=== PATIENT | female | born 1980 | race African-American/Black ===

== ENCOUNTER 2023-11-14 12:23 | Emergency (ER) | payer OTHER ==
[2023-11-14] MEDS ORDERED: Iopamidol 300 61% 100 ML VIAL FS ONE (13:34)
[2023-11-14] MEDS ORDERED: Morphine 4 MG/ML VIAL ONE (13:46)
[2023-11-14] MEDS ORDERED: Ondansetron PF 4 MG/2 ML Vial ONE (13:46)
[2023-11-14 13:50] LABS: Bilirubin Neg (Negative); Blood, Urine 25 (Negative); Clarity Cloudy (Clear); Glucose, Urine (Dipstick) >=1000 mg/dL (Negative); Ketone, Urine Negative (Negative); Leukocyte 100 (Negative); Nitrite Negative (Negative); Protein, Urine (Dipstick) 100 mg/dl (Neg-Trace); Specific Gravity, Urine 1.015 (1.005-1.030); Urobilinogen Normal mg/dL (Less than 2)
[2023-11-14 13:56] LABS: #Basophils 0.1 10x3/uL (0.0-0.2); #Eosinphils 0.1 10x3/uL (0.0-0.5); #Monocytes 0.6 10x3/uL (0.0-1.1); #Neutrophils 4.9 10x3/uL (1.5-8.4); %Eosinophils 0.9 % (0.0-6.0); %Lymphocytes 19.9 % (18.0-47.0); %Monocytes 8.1 % (0.0-10.0); Hematocrit 32.5 % (34.9-44.5); Hemoglobin 9.3 g/dL (12.0-15.5); Mean Corpuscular HGB CONC 28.6 g/dL (32.0-36.0); Mean Corpuscular Hemoglobin 20.1 pg (27.0-33.0); Mean Corpuscular Volume 70.3 fl (81.6-98.3); Mean Platelet Volume 10.9 fl (7.4-10.4); Platelet Count 324 10x3/uL (150-450); RBC Distribution Width 17.1 % (11.5-14.5); Red Blood Cell (RBC) Count 4.62 10x6/uL (3.90-5.03)
[2023-11-14 13:59] LABS: Amphetamine Not Detected (NotDetected); BHCG - Serum Negative (NEGATIVE); Barbiturates Screen Not Detected (NotDetected); Benzodiazepine Screen Not Detected (NotDetected); Cocaine Metabolite Screen Not Detected (NotDetected); Methadone Not Detected (NotDetected); Methamphetamine Not Detected (NotDetected); Opiate Screen Not Detected (NotDetected); Oxycodone Screen Not Detected (NotDetected); Phencyclidine (PCP) Not Detected (NotDetected); Pregs Control Bar Appear? YES (CONTROL BAR); THC/Cannabinoid Screen Not Detected (NotDetected); Tricyclic Screen Not Detected (NotDetected)
[2023-11-14 14:00] LABS: Pregs Control Background? CLEAR/WHITE (CLR/WHITE)
[2023-11-14 14:04] LABS: Acetaminophen Less than 10 mcg/mL (10.0-30.0); Alcohol Less than 10.0 mg/dL (Less than 10); Lipase 11 U/L (8-78); Magnesium 1.8 mg/dL (1.6-2.6); Salicylate Less than 8.0 mg/dL (15.0-30.0)
[2023-11-14 14:05] LABS: ALT (SGPT) 15 U/L (8-55); AST (SGOT) 18 U/L (5-34); Albumin 3.9 g/dL (3.5-5.0); Alkaline Phosphatase 115 U/L (40-110); Anion Gap 14 mmol/L (10-20); BUN (Urea Nitrogen) 16 mg/dL (7.0-18.7); Bilirubin, Total 0.5 mg/dL (0.2-1.2); Calc. Creatinine Clearance 0 mL/min (70-130); Carbon Dioxide 16 mmol/L (22-29); Chloride 104 mmol/L (98-107); Estimated GFR 56; Globulin 4.5 g/dL (2.4-3.5); Potassium 4.7 mmol/L (3.5-5.1); Protein, Total 8.4 g/dL (6.0-8.3); Sodium 129 mmol/L (136-145)
[2023-11-14 14:13] LABS: Glucose 418 mg/dL (70-105)
[2023-11-14 14:23] LABS: Bacteria/HPF 4+ HPF (None Seen)
[2023-11-14 14:24] LABS: CAUTI Indications for Culture Pelvic or flank pain; RBC/HPF 0-3 HPF (0-3); WBC/HPF 21-50 HPF (0-3)
[2023-11-14 14:25] LABS: Urine Culture Reflex Yes Yes
[2023-11-14 14:26] LABS: Anisocytosis SLIGHT = 6-15 cells (100X) (0-5/hpf); Microcytosis SLIGHT = 6-15 cells (100X) (0-5/hpf)
[2023-11-14 14:27] LABS: Hypochromia SLIGHT = 6-15 cells (100X) (0-5/hpf); Polychromasia SLIGHT = 2-3 cells (100X) (0-2/hpf); Tear Drops SLIGHT = 2-5 cells (100X) (0-1/hpf)
[2023-11-14 14:28] LABS: Ovalocytes MODERATE= 6-15 cells (100X) (0-1/hpf)
[2023-11-14 14:29] LABS: Platelet Adequacy Comment Appears Adequate
[2023-11-14] MEDS ORDERED: cefTRIAXone (ROCEPHIN) 1 GM VIAL ONE (15:04)
[2023-11-14 15:37] LABS: Actual Bicarbonate (HCO3v) 19.4 mEq/L (22-28); Analyzer IN Cardio CS ER; Base Excess -6.3 mEq/L (-2 - +2); Calcium, Ionized (venous) 1.13 mmol/L (1.16-1.32); Chloride (VBG) 102 mmol/L (98-106); Hematocrit-VBG 28 % (36.0-47.0); Hemoglobin (Hb) 9.6 g/dL (11.7-15.5); Potassium (VBG) 4.32 mmol/L (3.70-5.30); Puncture Site Other Site; RapidComm Collect By LAB; Sodium 121 mmol/L (133-146); pH (venous) 7.317 (7.32-7.43)
== END 2023-11-14 16:02 | disposition home or self-care (01) ==
LOC: CSHERS 12:23
DX: N39.0 Urinary tract infection, site not specified (principal); K86.1 Other chronic pancreatitis; I10 Essential (primary) hypertension; E11.9 Type 2 diabetes mellitus without complications; F17.210 Nicotine dependence, cigarettes, uncomplicated; Z79.84 Long term (current) use of oral hypoglycemic drugs
CPT/HCPCS: 74177; 80053; 80306; 80307; 81001; 82805; 83690; 83735; 84703; 85025; 87086; 93005; 96361; 96374; 96375; J0696; J2270; J2405; Q9967

== ENCOUNTER 2023-11-15 10:59 | Emergency (ER) | payer OTHER ==
[2023-11-15] MEDS ORDERED: Gabapentin 100 MG CAP PO SCH (11:30)
== END 2023-11-15 12:04 | disposition home or self-care (01) ==
LOC: CSHERS 10:59
DX: B02.9 Zoster without complications (principal); I10 Essential (primary) hypertension; E11.9 Type 2 diabetes mellitus without complications; E78.5 Hyperlipidemia, unspecified; B20 Human immunodeficiency virus [HIV] disease; F17.210 Nicotine dependence, cigarettes, uncomplicated; Z79.84 Long term (current) use of oral hypoglycemic drugs; Z79.899 Other long term (current) drug therapy
CPT/HCPCS: 74177; 80053; 80306; 80307; 81001; 82805; 83690; 83735; 84703; 85025; 87077; 87086; 93005; 96361; 96374; 96375; 99282; J0696; J2270; J2405; Q9967

== ENCOUNTER 2024-11-14 10:47 | Emergency (ER) | payer OTHER ==
[~2024-11-14 10:47] MED LIST: Iopamidol 300 61% 100 ML VIAL FS ONE
[2024-11-14] MEDS ORDERED: hydrALAZINE 20 MG/ML VIAL ONE (12:15)
[2024-11-14 12:43] LABS: Hematocrit 24.5 % (34.9-44.5); Hemoglobin 6.8 g/dL (12.0-15.5); Mean Corpuscular HGB CONC 27.8 g/dL (32.0-36.0); Mean Corpuscular Hemoglobin 18.9 pg (27.0-33.0); Mean Corpuscular Volume 68.1 fL (81.6-98.3); Mean Platelet Volume 9.8 fL (7.4-10.4); Platelet Count 334 10x3/uL (150-450); RBC Distribution Width 16.5 % (11.5-14.5); White Blood Cell (WBC) Count 6.36 10x3/uL (3.5-10.5)
[2024-11-14 12:44] LABS: #Basophils 0.03 10x3/uL (0.0-0.2); #Eosinophils 0.05 10x3/uL (0.0-0.5); #Monocytes 0.52 10x3/uL (0.0-1.1); %Basophils 0.5 % (0.0-2.0); %Eosinophils 0.8 % (0.0-6.0); %Lymphocytes 24.1 % (18.0-47.0); %Monocytes 8.2 % (0.0-10.0); %Neutrophils 65.9 % (40.0-75.0)
[2024-11-14 12:56] LABS: ALT (SGPT) Less than 7 U/L (Less than 34); AST (SGOT) 11 U/L (11-34); Albumin 3.2 g/dL (3.1-4.5); Alkaline Phosphatase 108 U/L (40-110); Anion Gap 14 mmol/L (10-20); BUN (Urea Nitrogen) 17 mg/dL (7.0-18.7); Bilirubin, Total 0.3 mg/dL (0.3-1.2); Calc. Creatinine Clearance 0 mL/min (70-130); Calcium 8.8 mg/dL (7.8-10.44); Carbon Dioxide 23 mmol/L (22-29); Chloride 99 mmol/L (98-107); Estimated GFR 50; Globulin 4.9 g/dL (2.4-3.5); Potassium 3.7 mmol/L (3.5-5.1); Protein, Total 8.1 g/dL (6.0-8.3); Sodium 132 mmol/L (136-145)
[2024-11-14 13:27] LABS: Hypochromia SLIGHT = 6-15 cells (100X) (0-5/hpf); Microcytosis MODERATE=15-30 cells (100X) (0-5/hpf); Ovalocytes MODERATE= 6-15 cells (100X) (0-1/hpf); Polychromasia SLIGHT = 2-3 cells (100X) (0-2/hpf); Tear Drops SLIGHT = 2-5 cells (100X) (0-1/hpf)
[2024-11-14 13:28] LABS: Platelet Adequacy Comment Appears Adequate
[2024-11-14 13:57] LABS: Prothrombin Time 10.5 sec (9.5-12.1)
[2024-11-14 14:23] LABS: Critical Call Chemistry ERS.BW2 AT 1423; Glucose 422 mg/dL (70-105)
[2024-11-14 18:20] LABS: #Basophils 0.04 10x3/uL (0.0-0.2); %Basophils 0.5 % (0.0-2.0); %Eosinophils 1.3 % (0.0-6.0); %Lymphocytes 25.3 % (18.0-47.0); %Monocytes 9.2 % (0.0-10.0); %Neutrophils 63.2 % (40.0-75.0); Hematocrit 26.1 % (34.9-44.5); Hemoglobin 7.5 g/dL (12.0-15.5); Mean Corpuscular HGB CONC 28.7 g/dL (32.0-36.0); Mean Corpuscular Hemoglobin 20.1 pg (27.0-33.0); Mean Platelet Volume 9.2 fL (7.4-10.4); Platelet Count 307 10x3/uL (150-450); RBC Distribution Width 17.4 % (11.5-14.5); Red Blood Cell (RBC) Count 3.73 10x6/uL (3.90-5.03)
== END 2024-11-14 18:19 | disposition short-term general hospital (02) ==
LOC: CSHERS 10:47
DX: I82.412 Acute embolism and thrombosis of left femoral vein (principal); D64.9 Anemia, unspecified; E11.65 Type 2 diabetes mellitus with hyperglycemia; I10 Essential (primary) hypertension; B20 Human immunodeficiency virus [HIV] disease; E78.5 Hyperlipidemia, unspecified; F17.210 Nicotine dependence, cigarettes, uncomplicated
CPT/HCPCS: 36415; 36430; 36556; 71045; 74177; 80053; 82010; 85025; 85610; 85730; 86850; 86900; 86901; 96374; J0360; P9016; Q9967

== ENCOUNTER 2025-06-13 00:49 | Emergency (ER) | payer OTHER ==
[2025-06-13] MEDS ORDERED: Mag-Al 1200 mg/1200 mg/30 ML UDCUP ONE (01:14)
[2025-06-13] MEDS ORDERED: Lidocaine Viscous Sol 2% 15 ml UD Cup ONE (01:14)
[2025-06-13] MEDS ORDERED: HYDROmorphone 0.5 MG/0.5 ML SYRINGE ONE (01:33)
[2025-06-13] MEDS ORDERED: Ondansetron PF 4 MG/2 ML Vial ONE (01:33)
[2025-06-13 01:52] LABS: Hematocrit 28.1 % (34.9-44.5); Hemoglobin 8.3 g/dL (12.0-15.5); Mean Corpuscular Hemoglobin 21.9 pg (27.0-33.0); Mean Corpuscular Volume 74.1 fL (81.6-98.3); Platelet Count 346 10x3/uL (150-450); Red Blood Cell (RBC) Count 3.79 10x6/uL (3.90-5.03); White Blood Cell (WBC) Count 5.63 10x3/uL (3.5-10.5)
[2025-06-13 01:55] LABS: ALT (SGPT) 14 U/L (Less than 34); AST (SGOT) 21 U/L (11-34); Albumin 3.9 g/dL (3.1-4.5); Alkaline Phosphatase 117 U/L (40-110); Anion Gap 17 mmol/L (10-20); BUN (Urea Nitrogen) 30 mg/dL (7.0-18.7); Bilirubin, Total 0.3 mg/dL (0.3-1.2); Calc. Creatinine Clearance 0 mL/min (70-130); Calcium 9.2 mg/dL (7.8-10.44); Carbon Dioxide 20 mmol/L (22-29); Chloride 98 mmol/L (98-107); Globulin 4.7 g/dL (2.4-3.5); Lipase 16 U/L (8-78); Potassium 4.5 mmol/L (3.5-5.1); Sodium 130 mmol/L (136-145)
[2025-06-13 02:01] LABS: Troponin I Less than 0.010 ng/mL (< 0.028)
[2025-06-13 02:16] LABS: Glucose 571 mg/dL (70-105)
[2025-06-13 02:30] LABS: #Basophils 0.05 10x3/uL (0.0-0.2); #Eosinophils 0.05 10x3/uL (0.0-0.5); #Monocytes 0.65 10x3/uL (0.0-1.1); #Neutrophils 3.23 10x3/uL (1.5-8.4); %Basophils 0.9 % (0.0-2.0); %Eosinophils 0.9 % (0.0-6.0); %Lymphocytes 29.1 % (18.0-47.0); %Monocytes 11.5 % (0.0-10.0); %Neutrophils 57.4 % (40.0-75.0); Anisocytosis SLIGHT = 6-15 cells (100X) (0-5/hpf); Microcytosis SLIGHT = 6-15 cells (100X) (0-5/hpf); Ovalocytes SLIGHT = 2-5 cells (100X) (0-1/hpf); Platelet Adequacy Comment Appears Adequate; Poikilocytosis SLIGHT = 6-15 cells (100X) (0-5/hpf)
== END 2025-06-13 04:02 | disposition home or self-care (01) ==
LOC: CSHERS 00:49
DX: K21.9 Gastro-esophageal reflux disease without esophagitis (principal); I10 Essential (primary) hypertension; E11.65 Type 2 diabetes mellitus with hyperglycemia; B20 Human immunodeficiency virus [HIV] disease; F17.210 Nicotine dependence, cigarettes, uncomplicated
CPT/HCPCS: 36416; 71045; 80053; 83690; 84484; 85025; 93005; 96374; 96375; J1171; J1815; J2405

== ENCOUNTER 2025-07-10 18:03 | Inpatient (IN) | payer OTHER ==
[2025-07-10 20:05] LABS: #Basophils 0.07 10x3/uL (0.0-0.2); #Eosinophils 0.06 10x3/uL (0.0-0.5); #Monocytes 0.55 10x3/uL (0.0-1.1); #Neutrophils 1.31 10x3/uL (1.5-8.4); %Basophils 1.9 % (0.0-2.0); %Eosinophils 1.6 % (0.0-6.0); %Lymphocytes 46.4 % (18.0-47.0); %Monocytes 14.8 % (0.0-10.0); %Neutrophils 35.3 % (40.0-75.0); Hematocrit 24.8 % (34.9-44.5); Hemoglobin 7.1 g/dL (12.0-15.5); Mean Corpuscular Hemoglobin 22.0 pg (27.0-33.0); Mean Corpuscular Volume 76.8 fL (81.6-98.3); Platelet Count 330 10x3/uL (150-450); Red Blood Cell (RBC) Count 3.23 10x6/uL (3.90-5.03); White Blood Cell (WBC) Count 3.71 10x3/uL (3.5-10.5)
[2025-07-10 20:08] LABS: BHCG - Serum Negative (NEGATIVE); Pregs Control Background? CLEAR/WHITE (CLR/WHITE); Pregs Control Bar Appear? YES (CONTROL BAR)
[2025-07-10 20:15] LABS: ALT (SGPT) 12 U/L (Less than 34); AST (SGOT) 25 U/L (11-34); Albumin 3.9 g/dL (3.1-4.5); Alkaline Phosphatase 92 U/L (40-110); Anion Gap 17 mmol/L (10-20); BUN (Urea Nitrogen) 17 mg/dL (7.0-18.7); Bilirubin, Total 0.2 mg/dL (0.3-1.2); Calc. Creatinine Clearance 0 mL/min (70-130); Calcium 8.6 mg/dL (7.8-10.44); Carbon Dioxide 12 mmol/L (22-29); Chloride 108 mmol/L (98-107); Globulin 4.7 g/dL (2.4-3.5); Glucose 187 mg/dL (70-105); Potassium 6.0 mmol/L (3.5-5.1); Sodium 131 mmol/L (136-145)
[2025-07-10 21:51] LABS: Troponin I Less than 0.010 ng/mL (< 0.028)
[2025-07-10 21:53] LABS: Actual Bicarbonate (HCO3v) 13.7 mEq/L (22-28); Analyzer IN Cardio CS ER; Base Excess -12.1 mEq/L (-2 - +2); Calcium, Ionized (venous) 1.14 mmol/L (1.16-1.32); Chloride (VBG) 107 mmol/L (98-106); Hematocrit-VBG 23 % (36.0-47.0); Hemoglobin (Hb) 7.9 g/dL (11.7-16.0); Potassium (VBG) 5.58 mmol/L (3.70-5.30); Puncture Site Other Site; RapidComm Collect By Lab; Sodium 133 mmol/L (133-146)
[2025-07-10 23:43] LABS: Glucose, Urine (Dipstick) 100 mg/dL (Negative); Leukocyte Trace (Negative); Protein, Urine (Dipstick) 30 mg/dL (Neg-Trace); Specific Gravity, Urine 1.020 (1.002-1.036)
[2025-07-10 23:44] LABS: CAUTI Indications for Culture Dysuria,urgency,freq; RBC/HPF 0-3 HPF (0-3)
[2025-07-10 23:45] LABS: Bacteria/HPF 2+ HPF (None Seen); Yeast-Budding Rare HPF (None Seen)
[2025-07-10 23:47] LABS: Urine Culture Reflex No No
[2025-07-11] MEDS ORDERED: Dextrose 50% Abboject 50 ML SYRINGE ONE (01:02)
[2025-07-11] MEDS ORDERED: Calcium Gluc 4.6 MEQ/10 ML (100 MG/ML) ONE (01:04)
[2025-07-11] MEDS ORDERED: Dextrose 50% Abboject 50 ML SYRINGE SLOW IVP PRN (02:16)
[2025-07-11] MEDS ORDERED: Glucagon 1 MG/ML KIT IM PRN (02:16)
[2025-07-11] MEDS ORDERED: Senokot S 8.6-50 MG TAB PO PRN (02:16)
[2025-07-11] MEDS ORDERED: Ondansetron PF 4 MG/2 ML Vial IVP PRN (02:16)
[2025-07-11] MEDS ORDERED: Calcium Carbonate 500 MG ChewTAB PO PRN (02:16)
[2025-07-11] MEDS ORDERED: Ventolin HFA Inhaler 60 PUFF INHALER INH PRN (02:25)
[2025-07-11 02:52] VITALS: BMI 26.5
[2025-07-11] MEDS: LOKELMA 10 GM PACKET PO SCH ×2 (03:12→17:20)
[2025-07-11] MEDS: diphenhydrAMINE 25 MG CAP PO SCH (03:12)
[2025-07-11] MEDS: Vancomycin 1 GM in Sodium Chloride 0.9% 250 ML 250 ML IVPB SCH (03:23)
[2025-07-11 05:24] LABS: #Basophils 0.03 10x3/uL (0.0-0.2); #Eosinophils 0.04 10x3/uL (0.0-0.5); #Monocytes 0.50 10x3/uL (0.0-1.1); #Neutrophils 1.61 10x3/uL (1.5-8.4); %Basophils 0.9 % (0.0-2.0); %Eosinophils 1.2 % (0.0-6.0); %Lymphocytes 34.5 % (18.0-47.0); %Monocytes 14.9 % (0.0-10.0); %Neutrophils 47.9 % (40.0-75.0); Hematocrit 22.9 % (34.9-44.5); Hemoglobin 6.8 g/dL (12.0-15.5); Mean Corpuscular Hemoglobin 22.8 pg (27.0-33.0); Mean Corpuscular Volume 76.8 fL (81.6-98.3); Platelet Count 240 10x3/uL (150-450); Red Blood Cell (RBC) Count 2.98 10x6/uL (3.90-5.03); White Blood Cell (WBC) Count 3.36 10x3/uL (3.5-10.5)
[2025-07-11 05:37] LABS: Anion Gap 11 mmol/L (10-20); BUN (Urea Nitrogen) 18 mg/dL (7.0-18.7); Calc. Creatinine Clearance 64 mL/min (70-130); Calcium 8.2 mg/dL (7.8-10.44); Carbon Dioxide 12 mmol/L (22-29); Chloride 112 mmol/L (98-107); Glucose 212 mg/dL (70-105); Iron 66 ug/dL (50-170); Iron Binding Capacity, Total 379 mcg/dL (265-497); Potassium 5.4 mmol/L (3.5-5.1); Sodium 130 mmol/L (136-145)
[2025-07-11] MEDS ORDERED: Enoxaparin 40 MG (0.4 mL) SYRINGE SC SCH (09:00)
[2025-07-11] MEDS ORDERED: Apixaban 5 MG TAB PO SCH (09:00)
[2025-07-11] MEDS: Pantoprazole 40 MG DR.TAB PO SCH (09:59)
[2025-07-11] MEDS: Ferrous Sulfate 325 MG TAB PO SCH (09:59)
[2025-07-11] MEDS: Alogliptin 6.25 MG TAB PO SCH (09:59)
[2025-07-11] MEDS: NIFEdipine XL 60 MG ER.TAB PO SCH (09:59)
[2025-07-11 10:28] LABS: Hematocrit 23.0 % (34.9-44.5); Hemoglobin 6.7 g/dL (12.0-15.5)
[2025-07-11 11:44] LABS: Anion Gap 13 mmol/L (10-20); BUN (Urea Nitrogen) 16 mg/dL (7.0-18.7); Calc. Creatinine Clearance 68 mL/min (70-130); Calcium 8.1 mg/dL (7.8-10.44); Carbon Dioxide 12 mmol/L (22-29); Chloride 109 mmol/L (98-107); Glucose 299 mg/dL (70-105); Potassium 5.5 mmol/L (3.5-5.1); Sodium 128 mmol/L (136-145)
[2025-07-11] MEDS: EMTRICITABINE PO SCH (12:02)
[2025-07-11] MEDS: BICTEGRAVIR PO SCH (12:02)
[2025-07-11] MEDS: TENOFOVIR ALAFENAMIDE PO SCH (12:02)
[2025-07-11] MEDS: Lantus 1000 UNITS/10 ML VIAL SC SCH (17:16)
[2025-07-11] MEDS: Sodium Bicarbonate 150 MEQ, Admixture Fee 1 EACH in Sterile Water 1,000 ML IV SCH (19:56)
[2025-07-11] MEDS: VANCOMYCIN 1.25 GM/250 ML BAG 1.25 GM in Premix 1 BAG IVPB SCH (20:21)
[2025-07-11] MEDS: Enoxaparin 80 MG (0.8 mL) SYRINGE SC SCH (21:06)
[2025-07-12 05:38] LABS: #Basophils 0.06 10x3/uL (0.0-0.2); #Eosinophils 0.08 10x3/uL (0.0-0.5); #Monocytes 0.55 10x3/uL (0.0-1.1); #Neutrophils 1.07 10x3/uL (1.5-8.4); %Basophils 1.9 % (0.0-2.0); %Eosinophils 2.6 % (0.0-6.0); %Lymphocytes 43.3 % (18.0-47.0); %Monocytes 17.6 % (0.0-10.0); %Neutrophils 34.3 % (40.0-75.0); Hematocrit 25.2 % (34.9-44.5); Hemoglobin 7.8 g/dL (12.0-15.5); Mean Corpuscular Hemoglobin 23.4 pg (27.0-33.0); Mean Corpuscular Volume 75.7 fL (81.6-98.3); Platelet Count 255 10x3/uL (150-450); Red Blood Cell (RBC) Count 3.33 10x6/uL (3.90-5.03); White Blood Cell (WBC) Count 3.12 10x3/uL (3.5-10.5)
[2025-07-12 05:59] LABS: Anion Gap 11 mmol/L (10-20); BUN (Urea Nitrogen) 13 mg/dL (7.0-18.7); Calc. Creatinine Clearance 75 mL/min (70-130); Calcium 8.2 mg/dL (7.8-10.44); Carbon Dioxide 17 mmol/L (22-29); Chloride 108 mmol/L (98-107); Glucose 168 mg/dL (70-105); Potassium 5.2 mmol/L (3.5-5.1); Sodium 131 mmol/L (136-145)
[2025-07-12 06:00] LABS: Vancomycin, Random 17.7 ug/mL (See Comment)
[2025-07-12] MEDS: BICTEGRAVIR PO SCH (08:39)
[2025-07-12] MEDS: TENOFOVIR ALAFENAMIDE PO SCH (08:39)
[2025-07-12] MEDS: EMTRICITABINE PO SCH (08:39)
[2025-07-12] MEDS: Lantus 1000 UNITS/10 ML VIAL SC SCH (08:40)
[2025-07-12] MEDS: Vancomycin 1 GM in Sodium Chloride 0.9% 250 ML 250 ML IVPB SCH (08:46)
[2025-07-12] MEDS: LOKELMA 10 GM PACKET PO SCH (10:56)
[2025-07-12] MEDS: Sodium Bicarbonate Tab 325 MG TAB PO SCH ×2 (11:26→21:26)
[2025-07-12 12:13] LABS: %CD4 Pos. Lymph 22.2 % (30.8-58.5); Absolute CD4 222 /uL (359-1519); Lymphocytes/Gated Cell Count 1.0 x10E3/uL (0.7-3.1); Total Lymphocyte 32 % (Not Estab.); WBC Total Count 3.2 x10E3/uL (3.4-10.8)
[2025-07-12 13:30] LABS: INR-International Normal Ratio 0.9; PTT 29.0 sec (22.0-33.0); Prothrombin Time 10.2 sec (9.5-12.1)
[2025-07-12 18:12] LABS: Anion Gap 10 mmol/L (10-20); BUN (Urea Nitrogen) 13 mg/dL (7.0-18.7); Calc. Creatinine Clearance 79 mL/min (70-130); Calcium 8.2 mg/dL (7.8-10.44); Carbon Dioxide 18 mmol/L (22-29); Chloride 107 mmol/L (98-107); Glucose 206 mg/dL (70-105); Potassium 4.4 mmol/L (3.5-5.1); Sodium 131 mmol/L (136-145)
[2025-07-13 00:28] LABS: Anion Gap 10 mmol/L (10-20); BUN (Urea Nitrogen) 13 mg/dL (7.0-18.7); Calc. Creatinine Clearance 73 mL/min (70-130); Calcium 8.0 mg/dL (7.8-10.44); Carbon Dioxide 16 mmol/L (22-29); Chloride 110 mmol/L (98-107); Glucose 268 mg/dL (70-105); Potassium 4.4 mmol/L (3.5-5.1); Sodium 132 mmol/L (136-145)
[2025-07-13 05:00] LABS: #Basophils 0.03 10x3/uL (0.0-0.2); #Eosinophils 0.06 10x3/uL (0.0-0.5); #Monocytes 0.55 10x3/uL (0.0-1.1); #Neutrophils 1.15 10x3/uL (1.5-8.4); %Basophils 1.0 % (0.0-2.0); %Eosinophils 2.0 % (0.0-6.0); %Lymphocytes 38.8 % (18.0-47.0); %Monocytes 18.4 % (0.0-10.0); %Neutrophils 38.5 % (40.0-75.0); Hematocrit 24.8 % (34.9-44.5); Hemoglobin 7.5 g/dL (12.0-15.5); Mean Corpuscular Hemoglobin 23.1 pg (27.0-33.0); Mean Corpuscular Volume 76.5 fL (81.6-98.3); Platelet Count 229 10x3/uL (150-450); Red Blood Cell (RBC) Count 3.24 10x6/uL (3.90-5.03); White Blood Cell (WBC) Count 2.99 10x3/uL (3.5-10.5)
[2025-07-13 05:16] LABS: INR-International Normal Ratio 0.9; PTT 29.1 sec (22.0-33.0); Prothrombin Time 10.2 sec (9.5-12.1)
[2025-07-13 05:19] LABS: Anion Gap 10 mmol/L (10-20); BUN (Urea Nitrogen) 14 mg/dL (7.0-18.7); Calc. Creatinine Clearance 70 mL/min (70-130); Calcium 7.9 mg/dL (7.8-10.44); Carbon Dioxide 17 mmol/L (22-29); Chloride 108 mmol/L (98-107); Glucose 301 mg/dL (70-105); Potassium 4.8 mmol/L (3.5-5.1); Sodium 130 mmol/L (136-145)
[2025-07-13 14:38] LABS: HIV-1 Quantitative, RNA PCR <20 copies/mL (.)
[2025-07-14 05:02] LABS: #Basophils 0.04 10x3/uL (0.0-0.2); #Eosinophils 0.09 10x3/uL (0.0-0.5); #Monocytes 0.52 10x3/uL (0.0-1.1); #Neutrophils 0.77 10x3/uL (1.5-8.4); %Basophils 1.4 % (0.0-2.0); %Eosinophils 3.3 % (0.0-6.0); %Lymphocytes 47.5 % (18.0-47.0); %Monocytes 18.8 % (0.0-10.0); %Neutrophils 27.9 % (40.0-75.0); Hematocrit 25.5 % (34.9-44.5); Hemoglobin 7.7 g/dL (12.0-15.5); Mean Corpuscular Hemoglobin 23.6 pg (27.0-33.0); Mean Corpuscular Volume 78.2 fL (81.6-98.3); Platelet Count 225 10x3/uL (150-450); Red Blood Cell (RBC) Count 3.26 10x6/uL (3.90-5.03); White Blood Cell (WBC) Count 2.76 10x3/uL (3.5-10.5)
[2025-07-14 05:15] LABS: INR-International Normal Ratio 0.9; Prothrombin Time 10.2 sec (9.5-12.1)
[2025-07-14 05:19] LABS: Anion Gap 9 mmol/L (10-20); BUN (Urea Nitrogen) 14 mg/dL (7.0-18.7); Calc. Creatinine Clearance 83 mL/min (70-130); Calcium 8.1 mg/dL (7.8-10.44); Carbon Dioxide 18 mmol/L (22-29); Chloride 110 mmol/L (98-107); Glucose 266 mg/dL (70-105); Potassium 4.5 mmol/L (3.5-5.1); Sodium 132 mmol/L (136-145)
[2025-07-14 14:30] VITALS: BP 153/92; TEMP 98.2
== END 2025-07-14 14:50 | disposition home or self-care (01) | DRG 812 ==
LOC: CSHERS 18:03 → CSHTELE 07-11 01:18
PROVIDERS: ADMIT Student in an Organized Health Care Education/Training Program; ATTEND Internal Medicine
PROC: 3E03329 Introduction of Other Anti-infective into Peripheral Vein, Percutaneous Approach (ICD-10-PCS; principal; 2025-07-11)
PROC: 30233N1 Transfusion of Nonautologous Red Blood Cells into Peripheral Vein, Percutaneous Approach (ICD-10-PCS; 2025-07-11)
DX: D62 Acute posthemorrhagic anemia (principal); E87.20 Acidosis, unspecified; N17.9 Acute kidney failure, unspecified; E22.2 Syndrome of inappropriate secretion of antidiuretic hormone; N92.0 Excessive and frequent menstruation with regular cycle; E87.5 Hyperkalemia; Z21 Asymptomatic human immunodeficiency virus [HIV] infection status; E11.22 Type 2 diabetes mellitus with diabetic chronic kidney disease; I12.9 Hypertensive chronic kidney disease with stage 1 through stage 4 chronic kidney disease, or unspecified chronic kidney disease; D63.1 Anemia in chronic kidney disease; N18.30 Chronic kidney disease, stage 3 unspecified; F17.210 Nicotine dependence, cigarettes, uncomplicated; F32.A Depression, unspecified; Z90.721 Acquired absence of ovaries, unilateral; Z88.8 Allergy status to other drugs, medicaments and biological substances; Z88.5 Allergy status to narcotic agent; Z90.49 Acquired absence of other specified parts of digestive tract; Z86.718 Personal history of other venous thrombosis and embolism; Z98.51 Tubal ligation status; Z79.2 Long term (current) use of antibiotics; Z79.84 Long term (current) use of oral hypoglycemic drugs; Z79.899 Other long term (current) drug therapy
CPT/HCPCS: 36415; 36416; 36430; 71045; 80048; 80053; 80202; 81001; 81002; 82010; 82088; 82728; 82805; 83036; 83540; 83550; 83605; 83880; 84133; 84244; 84484; 84703; 85025; 85610; 85730; 86140; 86361; 86850; 86900; 86901; 87040; 87081; 87536; 93005; 93970; 96374; 96375; 97139; A4217; J0612; J0692; J1650; J1815; J3373; J7050; J7999; P9016

== ENCOUNTER 2025-09-27 13:52 | Emergency (ER) | payer OTHER ==
[2025-09-27 15:20] LABS: Hematocrit 23.2 % (34.9-44.5); Hemoglobin 7.1 g/dL (12.0-15.5); Mean Corpuscular Hemoglobin 22.8 pg (27.0-33.0); Mean Corpuscular Volume 74.6 fL (81.6-98.3); Platelet Count 384 10x3/uL (150-450); Red Blood Cell (RBC) Count 3.11 10x6/uL (3.90-5.03); White Blood Cell (WBC) Count 5.44 10x3/uL (3.5-10.5)
[2025-09-27 15:24] LABS: Troponin I 0.014 ng/mL (< 0.028)
[2025-09-27 15:36] LABS: ALT (SGPT) 30 U/L (Less than 34); AST (SGOT) 21 U/L (11-34); Albumin 3.8 g/dL (3.1-4.5); Alkaline Phosphatase 108 U/L (40-110); Anion Gap 16 mmol/L (10-20); BUN (Urea Nitrogen) 18 mg/dL (7.0-18.7); Bilirubin, Total 0.3 mg/dL (0.3-1.2); Calc. Creatinine Clearance 0 mL/min (70-130); Calcium 8.4 mg/dL (7.8-10.44); Carbon Dioxide 19 mmol/L (22-29); Chloride 97 mmol/L (98-107); Globulin 3.8 g/dL (2.4-3.5); Potassium 4.1 mmol/L (3.5-5.1); Sodium 128 mmol/L (136-145)
[2025-09-27 15:52] LABS: Glucose 570 mg/dL (70-105)
[2025-09-27 17:39] LABS: MDiff Complete? YES; Microcytosis MODERATE=15-30 cells (100X) (0-5/hpf); Platelet Adequacy Comment Appears Adequate; Smudge Cells MODERATE
[2025-09-27 17:40] LABS: Anisocytosis SLIGHT = 6-15 cells (100X) (0-5/hpf)
== END 2025-09-27 16:08 | disposition home or self-care (01) ==
LOC: CSHERS 13:52
DX: D64.9 Anemia, unspecified (principal); E11.9 Type 2 diabetes mellitus without complications; I10 Essential (primary) hypertension; F17.210 Nicotine dependence, cigarettes, uncomplicated
CPT/HCPCS: 71045; 80053; 84484; 85025; 86850; 86900; 86901; 93005